=== PATIENT | male | born 1990 | race Caucasian/White ===

== ENCOUNTER 2017-10-08 17:10 | Emergency (ER) | payer OTHER ==
[~2017-10-08] VITALS: Ht 170.2 cm; Wt 80.3 kg
[2017-10-08 17:17] VITALS: Ht 170.2 cm; Wt 80.3 kg
[2017-10-08 21:04] VITALS: BP 130/57
== END 2017-10-08 17:51 | disposition home or self-care (01) ==
LOC: ED 17:10
DX: N45.1 Epididymitis (principal); F17.200 Nicotine dependence, unspecified, uncomplicated
CPT/HCPCS: J0696; Q0092